=== PATIENT | male | born 1955 | race Caucasian/White ===

== ENCOUNTER 2016-03-22 16:46 | Emergency (ER) | payer MEDICARE, OTHER ==
[~2016-03-22] VITALS: Ht 160 cm; Wt 78.9 kg
[~2016-03-22 16:46] MED LIST: BENA40TA54 PO; GLIP5TAB82 PO; HYDR25TA6 PO; MTF1000T PO; NPH,100V SQ; ZOC20 PO
[2016-03-22 16:53] VITALS: Ht 160 cm; Wt 78.9 kg
[2016-03-22] MEDS ORDERED: SODIUM CHLORIDE 0.9% 1L BAG IV* STA (22:42)
[2016-03-22] MEDS ORDERED: CEFTRIAXONE 1 GM/50 ML (PMX) 50 ML IVPB STA (22:42)
[2016-03-22] MEDS ORDERED: ASPI-664 PO (22:43)
[2016-03-22] MEDS ORDERED: METF850T PO (22:44)
[2016-03-22] MEDS ORDERED: NOVO3I SC (22:44)
[2016-03-22] MEDS ORDERED: INSULIN SC (22:46)
--- NOTE | 2016-03-22 23:29 | RADRPT ---
PROCEDURE: XR Chest. CLINICAL INDICATION: Cough. Sepsis. TECHNIQUE: Single frontal view. COMPARISON: 05/12/2013. FINDINGS: The lungs are clear. The heart size is normal. There is no pleural effusion. There is no pneumothorax. IMPRESSION: 1. Normal chest radiograph. 2. No change from 05/12/2013. RPTAT: QQ .Frank Ann MD, MD Date Time Electronically viewed and signed by .Frank Ann MD, MD on 03/22/2016 23:29 .R/
[2016-03-22 23:32] LABS: BASOPHILS % 0.3 % (0.0-2.0); EOSINOPHILS # 0.1 10^3/ul (0.0-0.5); EOSINOPHILS % 0.9 % (0.0-7.0); HEMATOCRIT 41.1 % (42.0-52.0); HEMOGLOBIN 14.5 g/dl (14.0-18.0); LYMPHOCYTES # 2.6 10^3/ul (0.8-2.9); LYMPHOCYTES % 27.7 % (15.0-51.0); MEAN CORPUSCULAR HGB CONC 35.2 g/dl (32.0-37.0); MEAN CORPUSCULAR VOLUME 88.2 fl (82.0-101.0); MEAN PLATELET VOLUME 9.9 fl (7.4-10.4); MONOCYTES % 11.1 % (0.0-11.0); NEUTROPHIL # 5.5 10^3/ul (1.6-7.5); PLATELET COUNT 154 10^3/UL (140-440); RED BLOOD COUNT 4.66 10^6/ul (4.70-6.10); RED CELL DISTRIBUTION WIDTH 12.4 % (11.5-14.5); UNCORRECTED WBC 9.3 10^3/ul (4.8-10.8); WHITE BLOOD COUNT 9.3 10^3/ul (4.8-10.8)
[2016-03-22 23:34] LABS: CONDITION 1
[2016-03-22 23:37] LABS: ALBUMIN 4.1 g/dl (3.3-4.9); CHLORIDE 97 mmol/L (97-110); POTASSIUM 3.6 mmol/L (3.5-5.1); SODIUM 129 mmol/L (135-144)
[2016-03-22 23:38] LABS: ADD UMIC NO; URINE BILIRUBIN (Dip) NEGATIVE (NEGATIVE); URINE BLOOD (Dip) NEGATIVE (NEGATIVE); URINE COLOR LT. YELLOW (YELLOW); URINE KETONES (Dip) NEGATIVE (NEGATIVE); URINE LEUKOCYTE ESTERASE (Dip) NEGATIVE (NEGATIVE); URINE NITRITE (Dip) NEGATIVE (NEGATIVE); URINE TOTAL PROTEIN (Dip) NEGATIVE (NEGATIVE); URINE UROBILINOGEN (Dip) 0.2 E.U./dL (0.1-1.0)
[2016-03-22 23:39] LABS: INR 0.95; PROTIME 12.7 Sec (12.2-14.2)
[2016-03-22 23:40] LABS: ALANINE AMINOTRANSFERASE 42 IU/L (13-69); ALBUMIN/GLOBULIN RATIO 1.05; ALKALINE PHOSPHATASE 70 IU/L (42-121); ANION GAP 10 (8-16); ASPARTATE AMINO TRANSFERASE 24 IU/L (15-46); BILIRUBIN,INDIRECT 0.3 mg/dl (0-1.1); BILIRUBIN,TOTAL 0.3 mg/dl (0.2-1.3); BLOOD UREA NITROGEN 9 mg/dl (7-20); CALCIUM 8.7 mg/dl (8.4-10.2); CARBON DIOXIDE 26 mmol/L (21-31); GLUCOSE 224 mg/dl (70-220); PARTIAL THROMBOPLASTIN TIME 27.8 Sec (25.0-35.0)
[2016-03-23 00:12] LABS: TROPONIN-I < 0.012 ng/ml (0.00-0.12)
[2016-03-23 01:26] VITALS: TEMP 98.6
[2016-03-23] MEDS ORDERED: LEVO750T25 PO (02:51)
[2016-03-23] MEDS ORDERED: BENZ100C70 PO (02:51)
[2016-03-23] MEDS ORDERED: HYDR-906 PO (02:51)
[2016-03-23] MEDS ORDERED: AZITHROMYCIN 250 MG TAB PO ONE (03:00)
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
[2016-03-23 03:21] VITALS: BP 124/78; PULSE 72; RESP 16
== END 2016-03-23 03:22 | disposition home or self-care (01) ==
LOC: E/R 16:46
DX: J20.9 Acute bronchitis, unspecified (principal); E11.65 Type 2 diabetes mellitus with hyperglycemia; I10 Essential (primary) hypertension; E87.1 Hypo-osmolality and hyponatremia; Z79.4 Long term (current) use of insulin; Z79.84 Long term (current) use of oral hypoglycemic drugs; Z79.82 Long term (current) use of aspirin
CPT/HCPCS: 36415; 71010; 80053; 81003; 83605; 84484; 85025; 85610; 85730; 87040; 87086; 93005; 96374; 99285; J0696; J7030